=== PATIENT | female | born 1990 | race American Indian/Alaskan Native ===

== ENCOUNTER 2021-12-16 09:10 | Emergency (ER) | payer MEDICAID ==
[2021-12-16] MEDS ORDERED: IBUPROFEN 800 MG TAB PO ONE (11:34)
[2021-12-16] MEDS ORDERED: ASPIRIN 325 MG TAB PO ONE (11:40)
[2021-12-16] MEDS ORDERED: HYDROcodone/ACETAMINOPHEN 5-325 MG TAB PO ONE (11:41)
--- NOTE | 2021-12-16 11:58 | Emergency Department Report ---
ED General Adult HPI - General Chief complaint: Pain General Stated complaint: Chest pain right side to right shoulder PUI?: No Source: patient Mode of arrival: Ambulatory Limitations: No Limitations - History of Present Illness Initial comments: 31-year-old female with no past medical history reports to the ER with complaints of right-sided chest pain that radiates to the right shoulder. Denies any shortness of breath, nausea, vomiting, chest pressure, [place], no dizziness. Patient reports not having any cardiac history or family history of cardiac problems at this moment. Patient reports pain is 6 out of 10 patient reports taking no medication for pain. Patient reports moving her right shoulder makes the pain worse. Denies no injury to right shoulder. Patient reports no other acute symptoms at this moment. Location: chest, upper extremity Severity scale (0 -10): 6 Quality: dull Improves with: none, rest Worsens with: movement Associated Symptoms: denies: chest pain, cough, diaphoresis, headaches, nausea/vomiting, shortness of breath Treatments Prior to Arrival: none - Related Data Previous Rx's Medication Instructions Recorded Last Taken Type Ibuprofen [Motrin] 600 mg PO Q8H PRN 7 Days #21 tablet 12/16/21 Unknown Rx Allergies Allergy/AdvReac Type Severity Reaction Status Date / Time No Known Allergies Allergy Unverified 12/16/21 09:27 ED Review of Systems ROS: Stated complaint: CHEST PAIN/RT SIDE Other details as noted in HPI Constitutional: denies: chills, fever Eyes: denies: eye pain, eye discharge, vision change ENT: denies: ear pain, throat pain Respiratory: denies: cough, shortness of breath, wheezing Cardiovascular: chest pain. denies: palpitations Endocrine: no symptoms reported Gastrointestinal: denies: abdominal pain, nausea, diarrhea Genitourinary: denies: urgency, dysuria, discharge Musculoskeletal: other (+right shoulder pain ). denies: back pain, joint swelling, arthralgia Skin: denies: rash, lesions Neurological: denies: headache, weakness, paresthesias Psychiatric: denies: anxiety, depression Hematological/Lymphatic: denies: easy bleeding, easy bruising ED Past Medical Hx - Surgical History Past Surgical History?: No - Medications Home Medications: Home Medications Medication Instructions Recorded Confirmed Last Taken Type Ibuprofen [Motrin] 600 mg PO Q8H PRN 7 Days #21 tablet 12/16/21 Unknown Rx ED Physical Exam - General Limitations: No Limitations General appearance: alert, in no apparent distress - Head Head exam: Present: atraumatic, normocephalic - Eye Eye exam: Present: normal appearance - ENT ENT exam: Present: mucous membranes moist - Neck Neck exam: Present: normal inspection - Respiratory Respiratory exam: Present: normal lung sounds bilaterally, chest wall tenderness (TTP right upper chest pain wall near shoulder ). Absent: respiratory distress - Cardiovascular Cardiovascular Exam: Present: regular rate, normal rhythm. Absent: systolic murmur, diastolic murmur, rubs, gallop - GI/Abdominal GI/Abdominal exam: Present: soft, normal bowel sounds - Extremities Exam Extremities exam: Present: normal inspection, full ROM (rigth Shoulder ), tenderness (TTP right shoulder ). Absent: joint swelling - Back Exam Back exam: Present: normal inspection - Neurological Exam Neurological exam: Present: alert, oriented X3 - Psychiatric Psychiatric exam: Present: normal affect, normal mood - Skin Skin exam: Present: warm, dry, intact, normal color. Absent: rash ED Course Vital Signs 12/16/21 12/16/21 12/16/21 09:24 11:46 12:09 Temperature 98.4 F Pulse Rate 89 Respiratory 15 16 16 Rate Blood Pressure 103/60 O2 Sat by Pulse 100 99 Oximetry ED Medical Decision Making - Lab Data Result diagrams: 12/16/21 12:12 - EKG Data EKG shows normal: sinus rhythm Rate: normal - EKG Data Interpretation: normal EKG - Radiology Data Radiology results: report reviewed, image reviewed - Medical Decision Making 31-year-old female with no past medical history complains of right upper chest pain that radiates to the right shoulder Patient is tender to touch to right shoulder and right upper chest full range of motion is intact to right shoulder Patient denies any chest pressure, no shortness of breath, no dizziness, no headaches EKG - normal sinus - no acute process noted. Chest x-ray - no acute process noted Right shoulder x-ray - no acute process noted BMP - no acute process noted. Trop - negative Based off patient's clinical presentation this presents to be non cardiac pain and more muscle skeletal pain in her right upper chest and right shoulder. Patient will be discharged home with oral medications and follow-up with her PCP. Labs and imaging was discussed with patient patient agrees with plan of care and verbalizes understanding. Vital signs were reviewed at discharge Vital Signs 12/16/21 12/16/21 12/16/21 09:24 11:46 12:09 Temperature 98.4 F Pulse Rate 89 Respiratory 15 16 16 Rate Blood Pressure 103/60 O2 Sat by Pulse 100 99 Oximetry Lab Results 12/16/21 12/16/21 Range/Units 12:12 12:12 Sodium 141 (137-145) mmol/L Potassium 4.2 (3.6-5.0) mmol/L Chloride 105.8 (98-107) mmol/L Carbon Dioxide 24 (22-30) mmol/L Anion Gap 15 mmol/L BUN 6 L (7-17) mg/dL Creatinine 0.6 (0.6-1.2) mg/dL Estimated GFR > 60 ml/min BUN/Creatinine Ratio 10 % Glucose 89 (65-100) mg/dL Calcium 9.7 (8.4-10.2) mg/dL Troponin T < 0.010 (0.00-0.029) ng/mL Critical care attestation.: If time is entered above; I have spent that time in minutes in the direct care of this critically ill patient, excluding procedure time. ED Disposition Clinical Impression: Non-cardiac chest pain, Right shoulder pain Disposition: 01 HOME / SELF CARE / HOMELESS Is pt being admited?: No Does the pt Need Aspirin: No Condition: Stable Instructions: Nonspecific Chest Pain, Adult, Shoulder Pain Prescriptions: Ibuprofen [Motrin] 600 mg PO Q8H PRN 7 Days #21 tablet PRN Reason: Pain Referrals: PRIMARY CARE, [Primary Care Provider] - 3-5 Days Time of Disposition: 14:29 Print Language: LITHUANIAN
--- NOTE | 2021-12-16 12:03 | XRay Report ---
CHEST 1 VIEW INDICATION: chest pain. COMPARISON: None FINDINGS: Support devices: None. Heart: Within normal limits. Lungs/Pleura: No acute air space or interstitial disease. No pleural abnormality or pneumothorax. Additional findings: None. IMPRESSION: No acute findings. RIGHT SHOULDER 3 VIEWS INDICATION: Right shoulder pain. COMPARISON: None. IMPRESSION: No acute osseous or soft tissue abnormality. No significant DJD. Signer Name: Ant Sabillon Jr, MD Signed: 12/16/2021 11:58 AM Workstation Name: [id number]
[2021-12-16 12:59] LABS: Blood Urea Nitrogen 6 mg/dL (7-17); Calcium 9.7 mg/dL (8.4-10.2); Hemolysis Index 2
[2021-12-16 13:00] LABS: BUN/Creatinine Ratio 10
[2021-12-16 14:48] VITALS: BP 123/68
--- NOTE | 2021-12-17 17:59 | Electrocardiograph Report ---
[facility] Test Date: 2021-12-16 Test Time: 14:19:00 Pat Name: J LUIS REAZO Department: Room: Gender: F [employer]: CECY : 1990 Requested By: MARGA GARCIA Order Number: [id number] Reading MD: Paxton Bean Measurements Intervals [place] Rate: 66 P: 42 SC: 195 QRS: 71 QRSD: 84 T: 41 QT: 371 QTc: 388 Interpretive Statements Sinus rhythm No previous ECG available for comparison Electronically Signed On 12-17-2021 17:59:22 EDT by Paxton Bean
== END 2021-12-16 14:46 | disposition home or self-care (01) ==
LOC: ED 09:10
DX: R07.9 Chest pain, unspecified (principal); M25.511 Pain in right shoulder
CPT/HCPCS: 36415; 71045; 80048; 84484; 93005; 99284